=== PATIENT | female | born 1995 | race African-American/Black ===

== ENCOUNTER 2021-06-16 17:06 | Emergency (ER) | payer MEDICAID ==
[~2021-06-16] VITALS: Ht 172.7 cm; Wt 91.0 kg
[2021-06-16] MEDS ORDERED: KETOROLAC 60MG/2ML VIAL IM ONE (19:30)
[2021-06-16] MEDS ORDERED: LORAZEPAM 0.5MG TABLET PO ONE (19:30)
[2021-06-16] MEDS ORDERED: CYCL25PO15 MT (19:38)
[2021-06-16] MEDS ORDERED: IBUP-2029 MT (19:38)
[2021-06-16 19:49] VITALS: BP 121/83
== END 2021-06-16 19:57 | disposition home or self-care (01) ==
LOC: ER 17:06
DX: M54.41 Lumbago with sciatica, right side (principal); R03.0 Elevated blood-pressure reading, without diagnosis of hypertension; E66.9 Obesity, unspecified; Z68.30 Body mass index [BMI] 30.0-30.9, adult
CPT/HCPCS: 96372; 99283; J1885

== ENCOUNTER 2021-07-11 15:04 | Emergency (ER) | payer MEDICAID ==
[~2021-07-11] VITALS: Ht 172.7 cm; Wt 100.0 kg
[~2021-07-11 15:04] MED LIST: CYCL25PO15 MT; IBUP-2029 MT
[2021-07-11 15:49] LABS: CHLORIDE 107 mEq/L (98-107)
[2021-07-11 15:51] LABS: BASOPHILS % 0.7 % (0.0-2.0); EOSINOPHILS % 0.5 % (0.0-5.0); HEMATOCRIT. 38.6 % (36.0-48.0); HEMOGLOBIN. 12.4 g/dL (12.0-16.0); LYMPHOCYTES % 22.2 % (20.0-50.0); MEAN CORPUSCULAR HEMOGLOBIN 26.2 pg (28.0-32.0); MEAN CORPUSCULAR VOLUME 81.9 fL (81.0-99.0); MEAN PLATELET VOLUME 8.8 fl (7.4-10.4); NEUTROPHILS % 68.6 % (40.0-76.0); PLATELET 226 x1000/uL (130-400); RED BLOOD CELL COUNT 4.72 mill/uL (4.2-5.4); RED CELL DISTRIBUTION WIDTH 15.3 % (11.6-14.6)
[2021-07-11 15:52] LABS: HCG SCREEN NEGATIVE
[2021-07-11 15:53] LABS: ETHANOL BLOOD < 10 mg/dL
[2021-07-11 16:24] LABS: CLARITY URINE CLEAR (CLEAR); COLOR URINE YELLOW (YELLOW); KETONES URINE 2+ (NEGATIVE); LEUKOCYTE ESTERASE URINE 2+ (NEGATIVE); NITRITE URINE NEGATIVE (NEGATIVE); OCCULT BLOOD URINE NEGATIVE (NEGATIVE); PROTEIN URINE 1+ (NEGATIVE)
[2021-07-11 16:35] LABS: *AMPHETAMINES SCREEN URINE NEGATIVE (NEGATIVE); *BENZODIAZEPINES SCREEN URINE NEGATIVE (NEGATIVE); *COCAINE SCREEN URINE NEGATIVE (NEGATIVE)
[2021-07-11 16:36] LABS: *BARBITURATES SCREEN URINE NEGATIVE (NEGATIVE); METHADONE URINE SCREEN NEGATIVE (NEGATIVE); OPIATES URINE SCREEN NEGATIVE (NEGATIVE); PHENCYCLIDINE URINE SCREEN NEGATIVE (NEGATIVE)
[2021-07-11 16:46] LABS: CANNABINOID URINE SCREEN PRESUMTIVE POSITIVE (NEGATIVE)
[2021-07-11] MEDS ORDERED: NITROFURANTOIN 100MG M/M CAPSULE PO ONE (17:00)
[2021-07-11] MEDS ORDERED: NITROFURANTOIN 100MG M/M CAPSULE PO SCH (21:00)
[2021-07-12] MEDS: NITROFURANTOIN 100MG M/M CAPSULE PO SCH ×2 (06:00→18:00)
[2021-07-13] MEDS: NITROFURANTOIN 100MG M/M CAPSULE PO SCH (06:00)
[2021-07-13] MEDS ORDERED: IBUPROFEN 600MG TABLET PO ONE (10:00)
[2021-07-13 11:39] VITALS: BP 96/71
== END 2021-07-13 11:55 ==
LOC: ER 15:04
DX: R45.851 Suicidal ideations (principal); Z20.822 Contact with and (suspected) exposure to COVID-19
CPT/HCPCS: 36415; 80053; 80305; 80307; 80320; 80329; 81003; 81025; 84703; 85025; 99285; C9803; U0005; G0480

== ENCOUNTER 2022-07-03 05:27 | Emergency (ER) | payer MEDICAID, OTHER ==
[~2022-07-03] VITALS: Ht 172.7 cm; Wt 97.4 kg
[2022-07-03] MEDS ORDERED: IBUPROFEN 600MG TABLET PO STA (07:43)
[2022-07-03] MEDS ORDERED: IBUP-2029 MT (08:50)
[2022-07-03 09:30] VITALS: BP 126/88
== END 2022-07-03 09:30 | disposition home or self-care (01) ==
LOC: ER 05:27
DX: R07.89 Other chest pain (principal); Z98.890 Other specified postprocedural states
CPT/HCPCS: 71045; 81025; 93005; 99283